=== PATIENT | male | born 1975 | race African-American/Black ===

== ENCOUNTER 2018-04-20 13:26 | Inpatient (IN) | payer OTHER ==
[2018-04-20 14:43] VITALS: BMI 34.1
--- NOTE | 2018-04-20 16:19 | HP ---
CIWA Score - CIWA Score Nausea/Vomitin-Mild Nausea/No Vomiting Muscle Tremors: 3 Anxiety: 3 Agitation: 1-Slight > Activity Paroxysmal Sweats: 1-Minimal Palms Moist Orientation: 0-Oriented Tacttile Disturbances: 2-Mild Itch/Numbness/Burn Auditory Disturbances: 0-None Visual Disturbances: 1-Very Mild Sensitivity Headache: 1-Very Mild CIWA-Ar Total Score: 13 Admission ROS S - HPI Chief Complaint: WITHDRAWAL SYMPTOMS Allergies/Adverse Reactions: Allergies Allergy/AdvReac Type Severity Reaction Status Date / Time No Known Allergies Allergy Verified 04/20/18 15:15 History of Present Illness: 42 Y.O. WITH AN EXTENSIVE HISTORY OF ALCOHOL AND COCAINE DEPENDENCE IS HERE SEEKING DETOX. DOES NOT HAVE A SIGNIFICANT PERIOD OF SOBRIETY. Exam Limitations: No Limitations - Ebola screening Have you traveled outside of the country in the last 21 days: No (N) Have you had contact with anyone from an Ebola affected area: No Have you been sick,other than usual withdrawal symptoms: No Do you have a fever: No - Review of Systems Constitutional: Chills, Diaphoresis EENT: reports: Blurred Vision, Double Vision, Hearing Loss, Nose Congestion Respiratory: reports: No Symptoms reported Cardiac: reports: Lightheadedness GI: reports: No Symptoms Reported : reports: No Symptoms Reported Musculoskeletal: reports: Back Pain, Joint Pain, Neck Pain Integumentary: reports: No Symptoms Reported Neuro: reports: Headache, Numbness, Tingling Endocrine: reports: No Symptoms Reported Hematology: reports: Other (SICKLE CELL TRAIN) Psychiatric: reports: Orientated x3, Anxious, Depressed, other (SCHIZOPHRENIA) Other Systems: Reviewed and Negative Patient History - Patient Medical History Hx Anemia: No (SICKLE CELL TRAIT ) Hx Asthma: No Hx Chronic Obstructive Pulmonary Disease (COPD): No Hx Cancer: No Hx Cardiac Disorders: No Hx Congestive Heart Failure: No Hx Hypertension: Yes Hx Hypercholesterolemia: No Hx Pacemaker: No HX Cerebrovascular Accident: No Hx Seizures: No Hx Dementia: No (TYPE II-NOT TAKING MEDS ) Hx Diabetes: Yes Hx Gastrointestinal Disorders: Yes Hx Liver Disease: No Hx Genitourinary Disorders: No Hx Sexually Transmitted Disorders: No Hx Renal Disease (ESRD): No Hx Human Immunodeficiency Virus (HIV): No Hx Hepatitis C: No Hx Depression: Yes (non-compliant with meds) Hx Suicide Attempt: No Hx Bipolar Disorder: No Hx Schizophrenia: Yes - Patient Surgical History Past Surgical History: Yes Other Surgical History: SKIN EXCISION BIOPSY REQUIRED SURGERY Anesthesia Reaction: Yes - PPD History Previous Implant?: Yes Documented Results: Negative w/o proof PPD to be Administered?: Yes - Reproductive History Patient is a Female of Child Bearing Age (11 -55 yrs old): No - Smoking Cessation Smoking history: Current every day smoker Aproximately how many cigarettes per day: 4 Hx Chewing Tobacco Use: No Initiated information on smoking cessation: Yes 'Breaking Loose' booklet given: 04/20/18 - Substance & Tx. History Hx Alcohol Use: Yes Hx Substance Use: Yes Substance Use Type: Alcohol, Cocaine, Marijuana - Substances Abused Alcohol Route: Oral Frequency: Daily Amount used: Vodka 1 quart, (1) 6pk Beer Age of first use: 9 Date of Last Use: 04/20/18 Cocaine Route: Inhalation Frequency: Daily Amount used: 1 Gm Age of first use: 23 Date of Last Use: 04/20/18 Marijuana/Hashish Route: Inhalation Frequency: Daily Amount used: $100 WEEKLY Age of first use: 16 Date of Last Use: 04/20/18 Family Disease History - Family Disease History Family Disease History: Diabetes: Father, Heart Disease: Grandparent, Father, [place] : Grandparent Admission Physical Exam BHS - Vital Signs Vital Signs: Vital Signs - 24 hr 04/20/18 14:41 Temperature 98.9 F Pulse Rate 89 Respiratory 20 Rate Blood Pressure 170/116 - Physical General Appearance: Yes: Obese, Anxious HEENTM: Yes: Hearing grossly Normal, Normal ENT Inspection, Normocephalic, Normal Voice Respiratory: Yes: Chest Non-Tender, Lungs Clear, Normal Breath Sounds, No Respiratory Distress, No Accessory Muscle Use Neck: Yes: No masses,lesions,Nodules, Trachea in good position Breast: Yes: Breast Exam Deferred Cardiology: Yes: Regular Rhythm, Regular Rate Abdominal: Yes: Normal Bowel Sounds, Non Tender, Flat Back: Yes: Normal Inspection Musculoskeletal: Yes: full range of Motion, Gait Steady Extremities: Yes: Normal Capillary Refill, Normal Inspection Neurological: Yes: sales development representative II-XII NML intact, Fully Oriented, Alert Integumentary: Yes: Normal Color, Dry, Warm Lymphatic: Yes: Within Normal Limits - Diagnostic (1) Alcohol dependence with uncomplicated withdrawal Current Visit: Yes Status: Chronic (2) Cocaine dependence Current Visit: Yes Status: Chronic (3) Marijuana dependence Current Visit: Yes Status: Chronic (4) Hypertension Current Visit: Yes Status: Chronic (5) GERD (gastroesophageal reflux disease) Current Visit: Yes Status: Chronic (6) Diabetes mellitus, type II Current Visit: Yes Status: Chronic Cleared for Admission [facility] - Detox or Rehab [facility] Level of Care: Medically Managed Detox Regimen/Protocol: Librium S Breath Alcohol Content Breath Alcohol Content: 0.033 Urine Drug Screen - Results Drug Screen Negative: No Urine Drug Screen Results: THC-Marijuana, LIOR-Cocaine
[2018-04-20] MEDS ORDERED: MENTHOL/PHENOL 1 EACH UD MM PRN (16:25)
[2018-04-20] MEDS ORDERED: hydrOXYzine PAMOATE 50 MG CAPSULE (FP) PO PRN (16:25)
[2018-04-20] MEDS ORDERED: MAGNESIUM HYDROX 2400MG/30ML ORAL SUSPENSION 30 ML CUP PO PRN (16:25)
[2018-04-20] MEDS ORDERED: MAGNESIUM CITRATE 300 ML BOTTLE PO PRN (16:25)
[2018-04-20] MEDS ORDERED: P-EPHED 60MG/TRIPROLIDI 2.5MG TABLET PO PRN (16:25)
[2018-04-20] MEDS ORDERED: chlordiazePOXIDE HCL 25 MG CAPSULE PO ONE (16:25)
[2018-04-20] MEDS ORDERED: IBUPROFEN 400 MG TABLET (FP) PO PRN (16:25)
[2018-04-20] MEDS ORDERED: LOPERAMIDE HCL 2 MG CAPSULE PO PRN (16:25)
[2018-04-20] MEDS ORDERED: chlordiazePOXIDE HCL 25 MG CAPSULE PO PRN (16:25)
[2018-04-20] MEDS ORDERED: guaiFENesin/D-METHORPHAN HB 10 ML UNIT-DOSE CUPS PO PRN (16:25)
[2018-04-20] MEDS ORDERED: ACETAMINOPHEN 325 MG TABLET (FP) PO PRN (16:25)
[2018-04-20] MEDS: LOSARTAN POTASSIUM 50 MG TABLET (FP) PO SCH (19:10)
[2018-04-20] MEDS ORDERED: MELATONIN 5 MG TABLETS PO PRN (22:00)
[2018-04-20] MEDS ORDERED: ZOLPIDEM TARTRATE 10 MG TABLET (PARK CARE ONLY) PO ONE (22:00)
[2018-04-20] MEDS: chlordiazePOXIDE HCL 25 MG CAPSULE PO SCH (22:16)
[2018-04-20] MEDS: THIAMINE HCL 100 MG TABLET (FP) PO SCH (22:16)
[2018-04-21] MEDS: chlordiazePOXIDE HCL 25 MG CAPSULE PO SCH ×4 (05:36→22:12)
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
[2018-04-21] MEDS: HYDROCHLOROTHIAZIDE 12.5 MG CAPSULE (FP) PO SCH (10:13)
[2018-04-21] MEDS: PRENATAL VITAMINS W/ FOLIC ACID TABLET (FP) PO SCH (10:14)
[2018-04-21] MEDS: LOSARTAN POTASSIUM 50 MG TABLET (FP) PO SCH (10:14)
[2018-04-21] MEDS: RANITIDINE HCL 150 MG TABLET (FP) PO SCH (10:14)
[2018-04-21 11:02] LABS: HEMATOCRIT 42.4 % (35.4-49); HEMOGLOBIN 14.3 GM/dL (11.7-16.9); MCH 26.5 pg (25.7-33.7); MCHC 33.8 g/dl (32.0-35.9); MEAN CELL VOLUME 78.3 fl (80-96); MEAN PLT VOLUME 8.6 fl (7.5-11.1); PLATELET COUNT 182 K/MM3 (134-434); RBC 5.42 M/mm3 (4.00-5.60); RDW 13.8 % (11.9-15.9); WHITE BLOOD COUNT 7.3 K/mm3 (4.0-10.0)
[2018-04-21 11:13] LABS: CHLORIDE 106 mmol/L (98-107); POTASSIUM 4.1 mmol/L (3.5-5.1); SODIUM 142 mmol/L (136-145)
[2018-04-21 11:31] LABS: ALBUMIN 3.5 g/dl (3.4-5.0); ALK PHOS 80 U/L (45-117); ANION GAP 11 MMOL/L (8-16); BILIRUBIN,TOTAL 1.1 mg/dL (0.2-1.0); BLOOD UREA NITROGEN 10 mg/dL (7-18); CALCIUM 8.8 mg/dL (8.5-10.1); CO2 25 mmol/L (21-32); GLUCOSE,RANDOM 97 mg/dL (74-106); SGOT/AST 28 U/L (15-37); SGPT/ALT 29 U/L (12-78); TOT PROT 6.7 g/dl (6.4-8.2)
[2018-04-21 11:34] LABS: URINE APPEARANCE TURBID; URINE BILIRUBIN NEGATIVE (<2.0 mg/dL); URINE COLOR YELLOW; URINE GLUCOSE (UA) NEGATIVE (NEGATIVE); URINE KETONE NEGATIVE (NEGATIVE); URINE LEUK ESTERASE NEGATIVE (NEGATIVE); URINE NITRITE NEGATIVE (NEGATIVE); URINE UROBILINOGEN NEGATIVE mg/dL (0.2-1.0)
[2018-04-21 11:46] LABS: URINE PROTEIN 1+ (NEGATIVE)
[2018-04-21 11:57] LABS: EPI CELLS RARE /HPF (FEW); URINE BACTERIA MANY /hpf (NONE SEEN); URINE MUCUS MODERATE
--- NOTE | 2018-04-21 12:30 | PN ---
[facility] CIWA - CIWA Score Nausea/Vomitin Muscle Tremors: 3 Anxiety: 3 Agitation: 3 Paroxysmal Sweats: 3 Orientation: 0-Oriented Tacttile Disturbances: 1-Very Mild Itch/Numbness Auditory Disturbances: 0-None Visual Disturbances: 0-None Headache: 1-Very Mild CIWA-Ar Total Score: 16 [facility] Progress Note (SOAP) Subjective: Headache, tremor, chills, sweating Objective: 04/21/18 12:27 Last Vital Signs Temp Pulse Resp BP Pulse Ox 97.6 F 100 H 18 138/95 04/21/18 09:22 04/21/18 09:22 04/21/18 09:22 04/21/18 09:22 Laboratory Tests 04/21/18 04/21/18 04/21/18 05:35 08:00 08:00 WBC 7.3 RBC 5.42 Hgb 14.3 Hct 42.4 MCV 78.3 L MCH 26.5 MCHC 33.8 RDW 13.8 Plt Count 182 MPV 8.6 Sodium Potassium Chloride Carbon Dioxide Anion Gap BUN Creatinine Creat Clearance w eGFR POC Glucometer 110 Random Glucose Calcium Total Bilirubin AST ALT Alkaline Phosphatase Total Protein Albumin Urine Color Urine Appearance Urine pH Ur Specific Speculator Urine Protein Urine Glucose (UA) Urine Ketones Urine Blood Urine Nitrite Urine Bilirubin Urine Urobilinogen Ur Leukocyte Esterase Urine WBC (Auto) Urine RBC (Auto) Ur Epithelial Cells Urine Bacteria Urine Mucus HIV 1&2 Antibody Screen Negative HIV P24 Antigen Negative 04/21/18 04/21/18 08:00 09:00 WBC RBC Hgb Hct MCV MCH MCHC RDW Plt Count MPV Sodium 142 Potassium 4.1 Chloride 106 Carbon Dioxide 25 Anion Gap 11 BUN 10 Creatinine 1.0 Creat Clearance w eGFR > 60 POC Glucometer Random Glucose 97 Calcium 8.8 Total Bilirubin 1.1 H AST 28 ALT 29 Alkaline Phosphatase 80 Total Protein 6.7 Albumin 3.5 Urine Color Yellow Urine Appearance Turbid Urine pH 5.0 Ur Specific Speculator 1.029 Urine Protein 1+ H Urine Glucose (UA) Negative Urine Ketones Negative Urine Blood Negative Urine Nitrite Negative Urine Bilirubin Negative Urine Urobilinogen Negative Ur Leukocyte Esterase Negative Urine WBC (Auto) None Urine RBC (Auto) None Ur Epithelial Cells Rare Urine Bacteria Many Urine Mucus Moderate HIV 1&2 Antibody Screen HIV P24 Antigen Labs reviewed: UA shows 1+ protein Assessment: 04/21/18 12:29 Withdrawal symptoms Noted with proteinuria Plan: Continue detox Proteinuria: encouraged PO water intake, repeat UA
[2018-04-21] MEDS ORDERED: cloNIDine HCL 0.1 MG TABLET PO ONE (21:40)
--- NOTE | 2018-04-21 21:55 | PN ---
S Progress Note Note: Patient's blood pressure is B/P 137/104. Patient is asymptomatic Vital Signs Temperature 97.9 F 04/21/18 17:44 Pulse Rate 79 04/21/18 17:44 Respiratory Rate 20 04/21/18 17:44 Blood Pressure 137/104 04/21/18 21:41 O2 Sat by Pulse Oximetry (%) Action: Clonidine 0.1mg tablet oral ordered
[2018-04-21] MEDS: ZOLPIDEM TARTRATE 10 MG TABLET (PARK CARE ONLY) PO PRN (22:12)
[2018-04-21] MEDS: THIAMINE HCL 100 MG TABLET (FP) PO SCH (22:12)
[2018-04-21] MEDS: MAG HYDROX/AL HYDROX/SIMETH 30 ML UNIT-DOSE CUP PO PRN (22:13)
[2018-04-22] MEDS: chlordiazePOXIDE HCL 25 MG CAPSULE PO SCH ×3 (05:04→17:25)
[2018-04-22] MEDS: RANITIDINE HCL 150 MG TABLET (FP) PO SCH (10:38)
[2018-04-22] MEDS: PRENATAL VITAMINS W/ FOLIC ACID TABLET (FP) PO SCH (10:38)
[2018-04-22] MEDS: LOSARTAN POTASSIUM 50 MG TABLET (FP) PO SCH (10:38)
[2018-04-22] MEDS: HYDROCHLOROTHIAZIDE 12.5 MG CAPSULE (FP) PO SCH (10:39)
--- NOTE | 2018-04-22 10:43 | PN ---
S CIWA - CIWA Score Nausea/Vomitin-No Nausea/No Vomiting Muscle Tremors: 4-Moderate,w/Arms Extend Anxiety: 4-Mod. Anxious/Guarded Agitation: 4-Moderately Restless Paroxysmal Sweats: 1-Minimal Palms Moist Orientation: 0-Oriented Tacttile Disturbances: 0-None Auditory Disturbances: 0-None Visual Disturbances: 0-None Headache: 0-None Present CIWA-Ar Total Score: 13 [facility] Progress Note (SOAP) Subjective: ANXIETY,SWEATS, IRRITABILITY. PT REQUESTS DIET CHANGE TO REGULAR DIET FROM [facility]/ [facility]. DOES NOT WANT TO BE ON A DIET. Objective: 04/22/18 10:41 Vital Signs 04/22/18 04/22/18 04/22/18 03:19 06:07 06:30 Temperature 97 F L Pulse Rate 75 Respiratory 18 18 18 Rate Blood Pressure 122/85 Laboratory Tests 04/21/18 04/21/18 04/21/18 05:35 08:00 08:00 WBC 7.3 RBC 5.42 Hgb 14.3 Hct 42.4 MCV 78.3 L MCH 26.5 MCHC 33.8 RDW 13.8 Plt Count 182 MPV 8.6 Sodium Potassium Chloride Carbon Dioxide Anion Gap BUN Creatinine Creat Clearance w eGFR POC Glucometer 110 Random Glucose Calcium Total Bilirubin AST ALT Alkaline Phosphatase Total Protein Albumin Urine Color Urine Appearance Urine pH Ur Specific [place] Urine Protein Urine Glucose (UA) Urine Ketones Urine Blood Urine Nitrite Urine Bilirubin Urine Urobilinogen Ur Leukocyte Esterase Urine WBC (Auto) Urine RBC (Auto) Ur Epithelial Cells Urine Bacteria Urine Mucus RPR Titer HIV 1&2 Antibody Screen Negative HIV P24 Antigen Negative 04/21/18 04/21/18 04/21/18 08:00 08:00 09:00 WBC RBC Hgb Hct MCV MCH MCHC RDW Plt Count MPV Sodium 142 Potassium 4.1 Chloride 106 Carbon Dioxide 25 Anion Gap 11 BUN 10 Creatinine 1.0 Creat Clearance w eGFR > 60 POC Glucometer Random Glucose 97 Calcium 8.8 Total Bilirubin 1.1 H AST 28 ALT 29 Alkaline Phosphatase 80 Total Protein 6.7 Albumin 3.5 Urine Color Yellow Urine Appearance Turbid Urine pH 5.0 Ur Specific [place] 1.029 Urine Protein 1+ H Urine Glucose (UA) Negative Urine Ketones Negative Urine Blood Negative Urine Nitrite Negative Urine Bilirubin Negative Urine Urobilinogen Negative Ur Leukocyte Esterase Negative Urine WBC (Auto) None Urine RBC (Auto) None Ur Epithelial Cells Rare Urine Bacteria Many Urine Mucus Moderate RPR Titer Nonreactive HIV 1&2 Antibody Screen HIV P24 Antigen 04/21/18 04/22/18 16:36 05:04 WBC RBC Hgb Hct MCV MCH MCHC RDW Plt Count MPV Sodium Potassium Chloride Carbon Dioxide Anion Gap BUN Creatinine Creat Clearance w eGFR POC Glucometer 121 150 Random Glucose Calcium Total Bilirubin AST ALT Alkaline Phosphatase Total Protein Albumin Urine Color Urine Appearance Urine pH Ur Specific [place] Urine Protein Urine Glucose (UA) Urine Ketones Urine Blood Urine Nitrite Urine Bilirubin Urine Urobilinogen Ur Leukocyte Esterase Urine WBC (Auto) Urine RBC (Auto) Ur Epithelial Cells Urine Bacteria Urine Mucus RPR Titer HIV 1&2 Antibody Screen HIV P24 Antigen Assessment: 04/22/18 10:41 WITHDRAWAL SX Plan: CONTINUE DETOX EXPLAINED TO PT THE BENEFIT OF DIET MODIFICATION IN PRE-DM AND HTN. PT IS NOT ON MEDS.
--- NOTE | 2018-04-22 11:24 | EKG ---
Test Reason : Blood Pressure : / mmHG Vent. Rate : 069 BPM Atrial Rate : 069 BPM P-R Int : 144 ms QRS Dur : 108 ms QT Int : 410 ms P-R-T Axes : 076 -15 020 degrees QTc Int : 439 ms NORMAL SINUS RHYTHM WITH SINUS ARRHYTHMIA POSSIBLE LEFT ATRIAL ENLARGEMENT INCOMPLETE RIGHT BUNDLE BRANCH BLOCK LEFT VENTRICULAR HYPERTROPHY ABNORMAL ECG NO PREVIOUS ECGS AVAILABLE Confirmed by PAUL OTERO MD ([id number]) on 04/22/2018 11:24:03 AM Referred By: Confirmed By:PAUL OTERO MD
[2018-04-22 16:58] LABS: URINE APPEARANCE CLEAR; URINE BILIRUBIN NEGATIVE (<2.0 mg/dL); URINE COLOR STRAW; URINE GLUCOSE (UA) NEGATIVE (NEGATIVE); URINE KETONE NEGATIVE (NEGATIVE); URINE LEUK ESTERASE NEGATIVE (NEGATIVE); URINE NITRITE NEGATIVE (NEGATIVE); URINE PROTEIN NEGATIVE (NEGATIVE); URINE UROBILINOGEN NEGATIVE mg/dL (0.2-1.0)
[2018-04-22] MEDS: THIAMINE HCL 100 MG TABLET (FP) PO SCH (22:18)
[2018-04-22] MEDS: MAG HYDROX/AL HYDROX/SIMETH 30 ML UNIT-DOSE CUP PO PRN (22:18)
[2018-04-22] MEDS: ZOLPIDEM TARTRATE 10 MG TABLET (PARK CARE ONLY) PO PRN (22:18)
[2018-04-22] MEDS: chlordiazePOXIDE 5 MG CAPSULE PO SCH (22:18)
[2018-04-23] MEDS: chlordiazePOXIDE 5 MG CAPSULE PO SCH ×3 (05:12→17:29)
[2018-04-23] MEDS: HYDROCHLOROTHIAZIDE 12.5 MG CAPSULE (FP) PO SCH (10:08)
[2018-04-23] MEDS: LOSARTAN POTASSIUM 50 MG TABLET (FP) PO SCH (10:09)
[2018-04-23] MEDS: RANITIDINE HCL 150 MG TABLET (FP) PO SCH (10:09)
[2018-04-23] MEDS: PRENATAL VITAMINS W/ FOLIC ACID TABLET (FP) PO SCH (10:09)
--- NOTE | 2018-04-23 11:52 | PN ---
[facility] Progress Note (SOAP) Subjective: DETOX MED TAPER PROCEEDING WELL. ALERT O X 3. NAD. Objective: 04/23/18 11:51 Vital Signs 04/23/18 04/23/18 06:20 10:06 Temperature 97.2 F L 97.0 F L Pulse Rate 67 117 H Respiratory 18 20 Rate Blood Pressure 133/83 133/87 Laboratory Tests 04/21/18 04/21/18 04/21/18 05:35 08:00 08:00 WBC 7.3 RBC 5.42 Hgb 14.3 Hct 42.4 MCV 78.3 L MCH 26.5 MCHC 33.8 RDW 13.8 Plt Count 182 MPV 8.6 Sodium Potassium Chloride Carbon Dioxide Anion Gap BUN Creatinine Creat Clearance w eGFR POC Glucometer 110 Random Glucose Calcium Total Bilirubin AST ALT Alkaline Phosphatase Total Protein Albumin Urine Color Urine Appearance Urine pH Ur Specific [place] Urine Protein Urine Glucose (UA) Urine Ketones Urine Blood Urine Nitrite Urine Bilirubin Urine Urobilinogen Ur Leukocyte Esterase Urine WBC (Auto) Urine RBC (Auto) Ur Epithelial Cells Urine Bacteria Urine Mucus RPR Titer HIV 1&2 Antibody Screen Negative HIV P24 Antigen Negative 04/21/18 04/21/18 04/21/18 08:00 08:00 09:00 WBC RBC Hgb Hct MCV MCH MCHC RDW Plt Count MPV Sodium 142 Potassium 4.1 Chloride 106 Carbon Dioxide 25 Anion Gap 11 BUN 10 Creatinine 1.0 Creat Clearance w eGFR > 60 POC Glucometer Random Glucose 97 Calcium 8.8 Total Bilirubin 1.1 H AST 28 ALT 29 Alkaline Phosphatase 80 Total Protein 6.7 Albumin 3.5 Urine Color Yellow Urine Appearance Turbid Urine pH 5.0 Ur Specific [place] 1.029 Urine Protein 1+ H Urine Glucose (UA) Negative Urine Ketones Negative Urine Blood Negative Urine Nitrite Negative Urine Bilirubin Negative Urine Urobilinogen Negative Ur Leukocyte Esterase Negative Urine WBC (Auto) None Urine RBC (Auto) None Ur Epithelial Cells Rare Urine Bacteria Many Urine Mucus Moderate RPR Titer Nonreactive HIV 1&2 Antibody Screen HIV P24 Antigen 04/21/18 04/22/18 04/22/18 16:36 05:04 14:00 WBC RBC Hgb Hct MCV MCH MCHC RDW Plt Count MPV Sodium Potassium Chloride Carbon Dioxide Anion Gap BUN Creatinine Creat Clearance w eGFR POC Glucometer 121 150 Random Glucose Calcium Total Bilirubin AST ALT Alkaline Phosphatase Total Protein Albumin Urine Color Straw Urine Appearance Clear Urine pH 6.0 Ur Specific [place] 1.009 Urine Protein Negative Urine Glucose (UA) Negative Urine Ketones Negative Urine Blood Negative Urine Nitrite Negative Urine Bilirubin Negative Urine Urobilinogen Negative Ur Leukocyte Esterase Negative Urine WBC (Auto) Urine RBC (Auto) Ur Epithelial Cells Urine Bacteria Urine Mucus RPR Titer HIV 1&2 Antibody Screen HIV P24 Antigen 04/22/18 04/23/18 16:13 05:12 WBC RBC Hgb Hct MCV MCH MCHC RDW Plt Count MPV Sodium Potassium Chloride Carbon Dioxide Anion Gap BUN Creatinine Creat Clearance w eGFR POC Glucometer 114 142 Random Glucose Calcium Total Bilirubin AST ALT Alkaline Phosphatase Total Protein Albumin Urine Color Urine Appearance Urine pH Ur Specific [place] Urine Protein Urine Glucose (UA) Urine Ketones Urine Blood Urine Nitrite Urine Bilirubin Urine Urobilinogen Ur Leukocyte Esterase Urine WBC (Auto) Urine RBC (Auto) Ur Epithelial Cells Urine Bacteria Urine Mucus RPR Titer HIV 1&2 Antibody Screen HIV P24 Antigen Assessment: 04/23/18 11:51 WITHDRAWAL SX Plan: CONTINUE DETOX
[2018-04-23] MEDS: THIAMINE HCL 100 MG TABLET (FP) PO SCH (21:39)
[2018-04-23] MEDS: ZOLPIDEM TARTRATE 10 MG TABLET (PARK CARE ONLY) PO PRN (21:40)
[2018-04-23] MEDS: chlordiazePOXIDE HCL 10 MG CAPSULE PO SCH (22:12)
[2018-04-24] MEDS: chlordiazePOXIDE HCL 10 MG CAPSULE PO SCH (05:12)
--- NOTE | 2018-04-24 09:49 | PN ---
S Progress Note (SOAP) Subjective: DETOX COMPLETED. ALERT O X 3. NAD. PT REPORTS HE HAD A PCP AT [facility] WITH DR. HERNANDEZ BUT MOVED. NOW GOES TO [facility] WHEN NEEDED. Objective: 04/24/18 09:48 Vital Signs 04/24/18 04/24/18 04/24/18 03:50 06:02 06:33 Temperature 98.1 F Pulse Rate 88 Respiratory 18 18 18 Rate Blood Pressure 117/82 Laboratory Tests 04/21/18 04/21/18 04/21/18 05:35 08:00 08:00 WBC 7.3 RBC 5.42 Hgb 14.3 Hct 42.4 MCV 78.3 L MCH 26.5 MCHC 33.8 RDW 13.8 Plt Count 182 MPV 8.6 Sodium Potassium Chloride Carbon Dioxide Anion Gap BUN Creatinine Creat Clearance w eGFR POC Glucometer 110 Random Glucose Calcium Total Bilirubin AST ALT Alkaline Phosphatase Total Protein Albumin Urine Color Urine Appearance Urine pH Ur Specific [place] Urine Protein Urine Glucose (UA) Urine Ketones Urine Blood Urine Nitrite Urine Bilirubin Urine Urobilinogen Ur Leukocyte Esterase Urine WBC (Auto) Urine RBC (Auto) Ur Epithelial Cells Urine Bacteria Urine Mucus RPR Titer HIV 1&2 Antibody Screen Negative HIV P24 Antigen Negative 04/21/18 04/21/18 04/21/18 08:00 08:00 09:00 WBC RBC Hgb Hct MCV MCH MCHC RDW Plt Count MPV Sodium 142 Potassium 4.1 Chloride 106 Carbon Dioxide 25 Anion Gap 11 BUN 10 Creatinine 1.0 Creat Clearance w eGFR > 60 POC Glucometer Random Glucose 97 Calcium 8.8 Total Bilirubin 1.1 H AST 28 ALT 29 Alkaline Phosphatase 80 Total Protein 6.7 Albumin 3.5 Urine Color Yellow Urine Appearance Turbid Urine pH 5.0 Ur Specific [place] 1.029 Urine Protein 1+ H Urine Glucose (UA) Negative Urine Ketones Negative Urine Blood Negative Urine Nitrite Negative Urine Bilirubin Negative Urine Urobilinogen Negative Ur Leukocyte Esterase Negative Urine WBC (Auto) None Urine RBC (Auto) None Ur Epithelial Cells Rare Urine Bacteria Many Urine Mucus Moderate RPR Titer Nonreactive HIV 1&2 Antibody Screen HIV P24 Antigen 04/21/18 04/22/18 04/22/18 16:36 05:04 14:00 WBC RBC Hgb Hct MCV MCH MCHC RDW Plt Count MPV Sodium Potassium Chloride Carbon Dioxide Anion Gap BUN Creatinine Creat Clearance w eGFR POC Glucometer 121 150 Random Glucose Calcium Total Bilirubin AST ALT Alkaline Phosphatase Total Protein Albumin Urine Color Straw Urine Appearance Clear Urine pH 6.0 Ur Specific [place] 1.009 Urine Protein Negative Urine Glucose (UA) Negative Urine Ketones Negative Urine Blood Negative Urine Nitrite Negative Urine Bilirubin Negative Urine Urobilinogen Negative Ur Leukocyte Esterase Negative Urine WBC (Auto) Urine RBC (Auto) Ur Epithelial Cells Urine Bacteria Urine Mucus RPR Titer HIV 1&2 Antibody Screen HIV P24 Antigen 04/22/18 04/23/18 04/23/18 16:13 05:12 16:12 WBC RBC Hgb Hct MCV MCH MCHC RDW Plt Count MPV Sodium Potassium Chloride Carbon Dioxide Anion Gap BUN Creatinine Creat Clearance w eGFR POC Glucometer 114 142 124 Random Glucose Calcium Total Bilirubin AST ALT Alkaline Phosphatase Total Protein Albumin Urine Color Urine Appearance Urine pH Ur Specific [place] Urine Protein Urine Glucose (UA) Urine Ketones Urine Blood Urine Nitrite Urine Bilirubin Urine Urobilinogen Ur Leukocyte Esterase Urine WBC (Auto) Urine RBC (Auto) Ur Epithelial Cells Urine Bacteria Urine Mucus RPR Titer HIV 1&2 Antibody Screen HIV P24 Antigen 04/24/18 05:12 WBC RBC Hgb Hct MCV MCH MCHC RDW Plt Count MPV Sodium Potassium Chloride Carbon Dioxide Anion Gap BUN Creatinine Creat Clearance w eGFR POC Glucometer 118 Random Glucose Calcium Total Bilirubin AST ALT Alkaline Phosphatase Total Protein Albumin Urine Color Urine Appearance Urine pH Ur Specific [place] Urine Protein Urine Glucose (UA) Urine Ketones Urine Blood Urine Nitrite Urine Bilirubin Urine Urobilinogen Ur Leukocyte Esterase Urine WBC (Auto) Urine RBC (Auto) Ur Epithelial Cells Urine Bacteria Urine Mucus RPR Titer HIV 1&2 Antibody Screen HIV P24 Antigen Assessment: 04/24/18 09:49 MEDICALLY STABLE Plan: D/C PT TODAY. PT INSTRUCTED TO FOLLOW UP WITH PCP AT [facility]. COURTESY RX FOR MEDS AND GLUCOMETER MACHINE WITH SUPPLIES SENT TO PHARMACY FOR [facility] ICER.
--- NOTE | 2018-04-24 09:55 | DS ---
[facility] Detox Discharge Summary Admission Date: 04/20/18 Discharge Date: 04/24/18 - History Present History: Alcohol Dependence Additional Comments: DETOX COMPLETED, ALERT O X 3. NAD. PT REPORTS WILL FOLLOW UP WITH PCP AT [facility]. Pertinent Past History: PLEASE SEE DX BELOW. - Physical Exam Results Vital Signs: Vital Signs Temperature 98.1 F 04/24/18 06:02 Pulse Rate 88 04/24/18 06:02 Respiratory Rate 18 04/24/18 06:33 Blood Pressure 117/82 04/24/18 06:02 O2 Sat by Pulse Oximetry (%) Pertinent Admission Physical Exam Findings: WITHDRAWAL SX Laboratory Tests 04/21/18 04/21/18 04/21/18 05:35 08:00 08:00 WBC 7.3 RBC 5.42 Hgb 14.3 Hct 42.4 MCV 78.3 L MCH 26.5 MCHC 33.8 RDW 13.8 Plt Count 182 MPV 8.6 Sodium Potassium Chloride Carbon Dioxide Anion Gap BUN Creatinine Creat Clearance w eGFR POC Glucometer 110 Random Glucose Calcium Total Bilirubin AST ALT Alkaline Phosphatase Total Protein Albumin Urine Color Urine Appearance Urine pH Ur Specific Parmele Urine Protein Urine Glucose (UA) Urine Ketones Urine Blood Urine Nitrite Urine Bilirubin Urine Urobilinogen Ur Leukocyte Esterase Urine WBC (Auto) Urine RBC (Auto) Ur Epithelial Cells Urine Bacteria Urine Mucus RPR Titer HIV 1&2 Antibody Screen Negative HIV P24 Antigen Negative 04/21/18 04/21/18 04/21/18 08:00 08:00 09:00 WBC RBC Hgb Hct MCV MCH MCHC RDW Plt Count MPV Sodium 142 Potassium 4.1 Chloride 106 Carbon Dioxide 25 Anion Gap 11 BUN 10 Creatinine 1.0 Creat Clearance w eGFR > 60 POC Glucometer Random Glucose 97 Calcium 8.8 Total Bilirubin 1.1 H AST 28 ALT 29 Alkaline Phosphatase 80 Total Protein 6.7 Albumin 3.5 Urine Color Yellow Urine Appearance Turbid Urine pH 5.0 Ur Specific [place]me[place] 1.029 Urine Protein 1+ H Urine Glucose (UA) Negative Urine Ketones Negative Urine Blood Negative Urine Nitrite Negative Urine Bilirubin Negative Urine Urobilinogen Negative Ur Leukocyte Esterase Negative Urine WBC (Auto) None Urine RBC (Auto) None Ur Epithelial Cells Rare Urine Bacteria Many Urine Mucus Moderate RPR Titer Nonreactive HIV 1&2 Antibody Screen HIV P24 Antigen 04/21/18 04/22/18 04/22/18 16:36 05:04 14:00 WBC RBC Hgb Hct MCV MCH MCHC RDW Plt Count MPV Sodium Potassium Chloride Carbon Dioxide Anion Gap BUN Creatinine Creat Clearance w eGFR POC Glucometer 121 150 Random Glucose Calcium Total Bilirubin AST ALT Alkaline Phosphatase Total Protein Albumin Urine Color Straw Urine Appearance Clear Urine pH 6.0 Ur Specific Parmele 1.009 Urine Protein Negative Urine Glucose (UA) Negative Urine Ketones Negative Urine Blood Negative Urine Nitrite Negative Urine Bilirubin Negative Urine Urobilinogen Negative Ur Leukocyte Esterase Negative Urine WBC (Auto) Urine RBC (Auto) Ur Epithelial Cells Urine Bacteria Urine Mucus RPR Titer HIV 1&2 Antibody Screen HIV P24 Antigen 04/22/18 04/23/18 04/23/18 16:13 05:12 16:12 WBC RBC Hgb Hct MCV MCH MCHC RDW Plt Count MPV Sodium Potassium Chloride Carbon Dioxide Anion Gap BUN Creatinine Creat Clearance w eGFR POC Glucometer 114 142 124 Random Glucose Calcium Total Bilirubin AST ALT Alkaline Phosphatase Total Protein Albumin Urine Color Urine Appearance Urine pH Ur Specific Parmele Urine Protein Urine Glucose (UA) Urine Ketones Urine Blood Urine Nitrite Urine Bilirubin Urine Urobilinogen Ur Leukocyte Esterase Urine WBC (Auto) Urine RBC (Auto) Ur Epithelial Cells Urine Bacteria Urine Mucus RPR Titer HIV 1&2 Antibody Screen HIV P24 Antigen 04/24/18 05:12 WBC RBC Hgb Hct MCV MCH MCHC RDW Plt Count MPV Sodium Potassium Chloride Carbon Dioxide Anion Gap BUN Creatinine Creat Clearance w eGFR POC Glucometer 118 Random Glucose Calcium Total Bilirubin AST ALT Alkaline Phosphatase Total Protein Albumin Urine Color Urine Appearance Urine pH Ur Specific Parmele Urine Protein Urine Glucose (UA) Urine Ketones Urine Blood Urine Nitrite Urine Bilirubin Urine Urobilinogen Ur Leukocyte Esterase Urine WBC (Auto) Urine RBC (Auto) Ur Epithelial Cells Urine Bacteria Urine Mucus RPR Titer HIV 1&2 Antibody Screen HIV P24 Antigen - Treatment Hospital Course: Detox Protocol Followed, Detoxed Safely, Responded well, Discharged Condition Good, Rehab Referral Accepted Patient has Accepted a Rehab Referral to: [facility] - Medication Discharge Medications: Ambulatory Orders Losartan-Hctz 100-12.5 mg Tab 1 tab PO DAILY 04/20/18 Quetiapine Fumarate [Seroquel -] 600 mg PO HS 04/20/18 Hydrochlorothiazide [Hctz -] 12.5 mg PO DAILY #30 cap 04/24/18 Losartan Potassium [Cozaar -] 100 mg PO DAILY #30 tablet 04/24/18 Metformin HCl [Glucophage] 500 mg PO BID #60 tablet 04/24/18 Ranitidine [Zantac -] 150 mg PO DAILY #30 tablet 04/24/18 - Diagnosis (1) Alcohol dependence with uncomplicated withdrawal Status: Acute (2) GERD (gastroesophageal reflux disease) Status: Chronic Qualifiers: Esophagitis presence: esophagitis presence not specified Qualified Code(s) : K21.9 - Gastro-esophageal reflux disease without esophagitis (3) Nicotine dependence Status: Acute Qualifiers: Nicotine product type: cigarettes Substance use status: in withdrawal Qualified Code(s): F17.213 - Nicotine dependence, cigarettes, with withdrawal (4) Diabetes mellitus, type II Status: Chronic Qualifiers: Diabetes mellitus half-way insulin use: unspecified half-way insulin use status Diabetes mellitus complication status: with unspecified complications Qualified Code(s): E11.8 - Type 2 diabetes mellitus with unspecified complications (5) Hypertension Status: Chronic Qualifiers: Hypertension type: essential hypertension Qualified Code(s): I10 - Essential (primary) hypertension - AMA Did Patient Leave Against Medical Advice: No
[2018-04-24] MEDS: RANITIDINE HCL 150 MG TABLET (FP) PO SCH (10:03)
[2018-04-24] MEDS: HYDROCHLOROTHIAZIDE 12.5 MG CAPSULE (FP) PO SCH (10:03)
[2018-04-24] MEDS: LOSARTAN POTASSIUM 50 MG TABLET (FP) PO SCH (10:03)
[2018-04-24] MEDS: PRENATAL VITAMINS W/ FOLIC ACID TABLET (FP) PO SCH (10:39)
[2018-04-24 10:45] VITALS: BP 131/101; PULSE 113; TEMP 98.6
== END 2018-04-24 10:46 | disposition home or self-care (01) | DRG 774 ==
LOC: YASAS 13:26 → Y3N 17:36
PROC: HZ2ZZZZ Detoxification Services for Substance Abuse Treatment (ICD-10-PCS; principal; 2018-04-20)
DX: F10.230 Alcohol dependence with withdrawal, uncomplicated (principal); F14.20 Cocaine dependence, uncomplicated; F12.20 Cannabis dependence, uncomplicated; F17.213 Nicotine dependence, cigarettes, with withdrawal; F19.24 Other psychoactive substance dependence with psychoactive substance-induced mood disorder; F19.282 Other psychoactive substance dependence with psychoactive substance-induced sleep disorder; F25.9 Schizoaffective disorder, unspecified; F32.9 Major depressive disorder, single episode, unspecified; Z91.14 Patient's other noncompliance with medication regimen; I10 Essential (primary) hypertension; E78.00 Pure hypercholesterolemia, unspecified; E11.9 Type 2 diabetes mellitus without complications; R80.9 Proteinuria, unspecified; D57.3 Sickle-cell trait
CPT/HCPCS: 36415; 80053; 81003; 81015; 82962; 85027; 86593; 87389; 93005; 93010; J0735

== ENCOUNTER 2019-06-06 11:22 | Inpatient (IN) | payer OTHER ==
[2019-06-06 14:19] VITALS: BMI 31.1
--- NOTE | 2019-06-06 15:16 | HP ---
COWS - Scale Resting Pulse: 0= [place] 80 or Below Sweatin=Flushed/Facial Moisture Restless Observation: 1= Difficult to Sit Still Pupil Size: 0= Normal to Room Light Bone or Joint Aches: 1= Mild Discomfort Runny Nose/ Eye Tearin= Runny Nose/Eyes GI Upset > 30mins: 3= Vomiting/Diarrhea Tremor Observation: 2= Slight Tremor Visible Yawning Observation: 0= None Anxiety or Irritability: 2=Irritable/Anxious Goose Flesh Skin: 0=Smooth Skin COWS Score: 13 CIWA Score Nausea/Vomitin-Cont. Nausea/Vomiting Muscle Tremors: 4-Moderate,w/Arms Extend Anxiety: 1-Mildly Anxious Agitation: 4-Moderately Restless Paroxysmal Sweats: 2 Orientation: 0-Oriented Tacttile Disturbances: 0-None Auditory Disturbances: 0-None Visual Disturbances: 0-None Headache: 3-Moderate CIWA-Ar Total Score: 21 - Admission Criteria OASAS Guidelines: Admission for Medically Managed Detox: Requires at least one of the followin. CIWA greater than 12 2. Seizures within the past 24 hours 3. Delirium tremens within the past 24 hours 4. Hallucinations within the past 24 hours 5. Acute intervention needed for co occurring medical disorder 6. Acute intervention needed for co occurring psychiatric disorder 7. Severe withdrawal that cannot be handled at a lower level of care (continued vomiting, continued diarrhea, abnormal vital signs) requiring intravenous medication and/or fluids 8. Admitting History and Physical - Past Medical History Cardiovascular: Yes: HTN Psych: Yes: Bipolar Endocrine: Yes: Diabetes Mellitus - Past Surgical History Additional Past Surgical History: LLE I&D - Smoking History Smoking history: Current every day smoker Have you smoked in the past 12 months: Yes Aproximately how many cigarettes per day: 10 - Alcohol/Substance Use Hx Alcohol Use: Yes History of Substance Use: reports: Cocaine, Heroin, Marijuana, Prescription Admission ROS [facility] Allergies/Adverse Reactions: Allergies Allergy/AdvReac Type Severity Reaction Status Date / Time No Known Allergies Allergy Verified 06/06/19 14:10 History of Present Illness: 43 y.o. M HTN, DM2, bipolar disorder (not on psych meds) presenting for detox from heroin and alcohol. Pt had completed detox here in the past. EtOH: Drinks 1 pint vodka and 1 6 pack daily. Last drink today around 5am, 1/2 liter vodka. Has been drinking since age 11 or 12. Has passed out from drinking. Never had seizures in the past from not drinking. Heroin: Uses 1 bag every other day. Sniffs, never used IV. HaD been using heroin 6-7 years. Benzos: takes ambien, prescribed by psychiatrist at [facility]/ [facility] as per patient Cocaine: hasnt used in 1 week Marijuana: daily use, 3 blunts every day Cigarettes: smokes 1/2 pack daily. Since age 19. PSH: LLE I&D "d/t staph infection" Social hx: homeless x 4-5 months. Not currently working. Has good support system. All: pollens, seasonal Meds: ambien, seroquel Exam Limitations: Intoxication - Ebola screening Have you traveled outside of the country in the last 21 days: No (N) Have you had contact with anyone from an Ebola affected area: No Do you have a fever: No - Review of Systems Constitutional: Chills, Diaphoresis, Weakness Respiratory: reports: No Symptoms reported Cardiac: reports: No Symptoms Reported GI: reports: Constipated, Nausea, Vomiting, Abdominal cramping : reports: No Symptoms Reported Musculoskeletal: reports: Back Pain Integumentary: reports: No Symptoms Reported Neuro: reports: Headache, Dizziness Endocrine: reports: No Symptoms Reported Hematology: reports: No Symptoms Reported Psychiatric: reports: other ("I feel messed up") Patient History - Patient Medical History Hx Anemia: No (SICKLE CELL TRAIT ) Hx Asthma: No Hx Chronic Obstructive Pulmonary Disease (COPD): No Hx Cancer: No Hx Cardiac Disorders: No Hx Congestive Heart Failure: No Hx Hypertension: Yes Hx Hypercholesterolemia: No Hx Pacemaker: No HX Cerebrovascular Accident: No Hx Seizures: No Hx Dementia: No (TYPE II-NOT TAKING MEDS ) Hx Diabetes: Yes Hx Gastrointestinal Disorders: Yes Hx Liver Disease: No Hx Genitourinary Disorders: No Hx Sexually Transmitted Disorders: No Hx Renal Disease (ESRD): No Hx Human Immunodeficiency Virus (HIV): No Hx Hepatitis C: No Hx Depression: Yes (non-compliant with meds) Hx Suicide Attempt: No Hx Bipolar Disorder: No Hx Schizophrenia: Yes - Patient Surgical History Past Surgical History: Yes Other Surgical History: SKIN EXCISION BIOPSY REQUIRED SURGERY Anesthesia Reaction: Yes - PPD History Date: 04/22/18 - Smoking Cessation Smoking history: Current every day smoker Have you smoked in the past 12 months: Yes Aproximately how many cigarettes per day: 10 Hx Chewing Tobacco Use: No Initiated information on smoking cessation: Yes 'Breaking Loose' booklet given: 06/06/19 - Substances abused Alcohol Substance route: Oral Frequency: Daily Amount used: 1 pint of vodka, 6 pack beer Age of first use: 11 Date of last use: 06/06/19 Heroin Substance route: Inhalation Frequency: 3-6 times per week Amount used: $40 Age of first use: 28 Date of last use: 06/04/19 Cocaine Substance route: Inhalation Frequency: 1-2 times per week Amount used: 1-2gm Age of first use: 27 Date of last use: 05/23/19 Admission Physical Exam [facility] - Vital Signs Vital Signs: Vital Signs - 24 hr 06/06/19 14:05 Temperature 96.9 F L Pulse Rate 63 Respiratory 16 Rate Blood Pressure 172/98 H - Physical General Appearance: Yes: Disheveled, Mild Distress, Intoxicated, Sweating, Anxious HEENTM: Yes: Hearing grossly Normal, Normocephalic, Normal Voice, GOGO, Pharynx Normal Respiratory: Yes: Lungs Clear, Normal Breath Sounds Neck: Yes: Within Normal Limits Cardiology: Yes: Within Normal Limits, Regular Rhythm, Regular Rate, S1, S2 Abdominal: Yes: Normal Bowel Sounds, Non Tender, Soft Back: Yes: Within Normal Limits Musculoskeletal: Yes: Within Normal Limits Extremities: Yes: Within Normal Limits, Normal Inspection Neurological: Yes: emergency services professional II-XII NML intact, Fully Oriented, Alert Integumentary: Yes: Within Normal Limits Lymphatic: Yes: Within Normal Limits - Diagnostic (1) Alcohol dependence with uncomplicated withdrawal Current Visit: No Status: Acute (2) Cannabis dependence Current Visit: No Status: Chronic (3) Diabetes mellitus, type II Current Visit: No Status: Chronic Qualifiers: Diabetes mellitus snf insulin use: unspecified termite renewal inspector insulin use status Diabetes mellitus complication status: with unspecified complications (4) Hypertension Current Visit: No Status: Chronic Qualifiers: Hypertension type: essential hypertension Qualified Code(s): I10 - Essential (primary) hypertension (5) Marijuana dependence Current Visit: No Status: Chronic Cleared for Admission [facility] - Detox or Rehab [facility] Level of Care: Medically Supervised Detox Regimen/Protocol: Librium Breathalyzer - Breathalyzer Breathalyzer: 0 Urine Drug Screen - Test Device Lot number: [id number] Expiration date: 01/10/21 - Control Is test valid?: Yes - Results Drug screen NEGATIVE: No Urine drug screen results: THC-Marijuana, MOP-Opiates, BZO-Benzodiazepines Inpatient Rehab Admission - Rehab Decision to Admit Inpatient rehab admission?: No
[2019-06-06] MEDS ORDERED: NICOTINE POLACRILEX 2 MG GUM BUC PRN (15:29)
[2019-06-06] MEDS ORDERED: ACETAMINOPHEN 325 MG TABLET (FP) PO PRN ×2 (15:29)
[2019-06-06] MEDS ORDERED: BISMUTH SUBSALICYLATE 262 MG/15 ML BTL PO PRN (15:29)
[2019-06-06] MEDS ORDERED: MAG HYDROX/AL HYDROX/SIMETH 30 ML UNIT-DOSE CUP PO PRN (15:29)
[2019-06-06] MEDS ORDERED: IBUPROFEN 400 MG TABLET (FP) PO PRN (15:29)
[2019-06-06] MEDS ORDERED: chlordiazePOXIDE HCL 25 MG CAPSULE PO PRN (15:29)
[2019-06-06] MEDS ORDERED: MAGNESIUM CITRATE 300 ML BOTTLE PO PRN (15:29)
[2019-06-06] MEDS ORDERED: MAGNESIUM HYDROX 2400MG/30ML ORAL SUSPENSION 30 ML CUP PO PRN (15:29)
[2019-06-06] MEDS: LORATADINE 10 MG TABLET PO SCH (18:16)
[2019-06-06] MEDS: chlordiazePOXIDE HCL 25 MG CAPSULE PO SCH ×2 (18:16→22:05)
[2019-06-06] MEDS: ALBUTEROL SO4 8 GM HFA INHALER IH SCH (21:22)
[2019-06-06] MEDS: THIAMINE HCL 100 MG TABLET (FP) PO SCH (22:05)
[2019-06-06] MEDS: MELATONIN 5 MG TABLETS PO PRN (22:05)
[2019-06-06] MEDS: MENTHOL/PHENOL 1 EACH UD MM PRN (22:08)
[2019-06-07] MEDS: chlordiazePOXIDE HCL 25 MG CAPSULE PO SCH ×4 (05:36→22:21)
[2019-06-07] MEDS: metFORMIN HCL 500 MG TABLET (FP) PO SCH ×2 (06:01→16:50)
[2019-06-07] MEDS: LORATADINE 10 MG TABLET PO SCH (10:25)
[2019-06-07] MEDS: PRENATAL VITAMINS W/ FOLIC ACID TABLET (FP) PO SCH (10:25)
[2019-06-07] MEDS: ALBUTEROL SO4 8 GM HFA INHALER IH SCH ×4 (10:25→20:21)
[2019-06-07] MEDS: LOSARTAN POTASSIUM 25 MG TABLET PO SCH (10:26)
[2019-06-07 12:30] LABS: HEMATOCRIT 40.9 % (35.4-49); HEMOGLOBIN 13.9 GM/dL (11.7-16.9); MCH 27.4 pg (25.7-33.7); MCHC 34.1 g/dl (32.0-35.9); MEAN CELL VOLUME 80.3 fl (80-96); MEAN PLT VOLUME 8.5 fl (7.5-11.1); PLATELET COUNT 221 K/MM3 (134-434); RBC 5.09 M/mm3 (4.00-5.60); RDW 13.2 % (11.9-15.9); WHITE BLOOD COUNT 10.1 K/mm3 (4.0-10.0)
[2019-06-07 12:33] LABS: ALBUMIN 3.6 g/dl (3.4-5.0); BILIRUBIN,TOTAL 0.6 mg/dL (0.2-1); BLOOD UREA NITROGEN 16.9 mg/dL (7-18); CALCIUM 8.7 mg/dL (8.5-10.1); CREATININE 1.1 mg/dL (0.55-1.3); POTASSIUM 4.2 mmol/L (3.5-5.1)
--- NOTE | 2019-06-07 15:25 | CONSULT ---
[facility] Psychiatric Consult - Data Date of interview: 06/07/19 Admission source: [facility] Identifying data: Readmission to [facility] for this 43 y/o AA male self- referred for detoxification (LORENA issues : cannabis, cocaine, alcohol, nicotine, heroin). Interviewed at [address] [place] [address]. Patient is single, a father of six, homeless, unemployed and deprived of financial assistance. Substance Abuse History: Discussed with patient Details in current [facility] report as follows : Smoking history: Current every day smoker. Have you smoked in the past 12 months: Yes. Aproximately how many cigarettes per day: 10. Hx Chewing Tobacco Use: No. Initiated information on smoking cessation: Yes. 'Breaking Loose' booklet given: 06/06/19. - Substances abused. Alcohol. Substance route: Oral. Frequency: Daily. Amount used: 1 pint of vodka, 6 pack beer. Age of first use: 11. Date of last use: 06/06/19. Heroin. Substance route : Inhalation. Frequency: 3-6 times per week. Amount used: $40. Age of first use: 28. Date of last use: 06/04/19. Cocaine. Substance route: Inhalation. Frequency: 1-2 times per week. Amount used: 1-2gm. Age of first use: 27. Date of last use: 05/23/19 Medical History: Medical profile is significant for sickle cell anemia, hypertension and diabetes mellitus. Psychiatric History: Patient is a marginally cooperative and evasive historian. Argumentative. " Everything is in my records. I am tired of repeating myself. Why don't you check the computer ? I don't remember the names of my medications. " Mr Gibson states that he got discharged from the psychiatric inpatient service at [facility] about a week ago. Endorses the diagnosis of Bipolar Disorder. Patient declares that he last took psychotropic medications 3- 4 years ago. Has dropped out of OPD care at [facility] mental health clinic since 2014. Admits to one suicide attempt (overdose with drugs, two weeks ago). Physical/Sexual Abuse/Trauma History: Patient denies. Additional Comment: Urine drug screen results: THC-Marijuana, MOP-Opiates, BZO- Benzodiazepines. Noted. Mental Status Exam - Mental Status Exam Alert and Oriented to: Time, Place, Person Cognitive Function: Good Patient Appearance: Unkempt, Disheveled Mood: Hostile, Withdrawn, Irritable Affect: Mood Congruent, Constricted Patient Behavior: Fatigued, Cooperative Speech Pattern: Clear Voice Loudness: Normal Thought Process: Goal Oriented Thought Disorder: Not Present Hallucinations: Denies Suicidal Ideation: Denies Homicidal Ideation: Denies Insight/Judgement: Poor Sleep: Poorly, Difficulty falling asleep Appetite: Good Muscle strength/Tone: Normal Gait/Station: Normal Psychiatric Findings - Problem List ([place] 1, 2,3) (1) Alcohol dependence with uncomplicated withdrawal Current Visit: Yes Status: Acute (2) Opioid use disorder Current Visit: Yes Status: Chronic (3) Nicotine dependence Current Visit: Yes Status: Chronic Qualifiers: Nicotine product type: cigarettes Substance use status: in withdrawal Qualified Code(s): F17.213 - Nicotine dependence, cigarettes, with withdrawal (4) Cannabis dependence Current Visit: Yes Status: Chronic (5) Cocaine dependence Current Visit: Yes Status: Chronic (6) Substance induced mood disorder Current Visit: Yes Status: Chronic (7) Schizoaffective disorder Current Visit: Yes Status: Chronic (8) Insomnia Current Visit: Yes Status: Chronic (9) Non-compliance Current Visit: Yes Status: Chronic - Initial Treatment Plan Initial Treatment Plan: Psychoeducation. Sleep hygiene. Detoxification. Medications on hold until verification of discharge papers from [facility]. Patient is made aware. Nursing staff advised to allow patient to retrieve documents from [facility] lockers. Support. AA/NA meetings. Observation. No medications found.
[2019-06-07] MEDS: LIDOCAINE 5% TOPICAL PATCH TP SCH (15:35)
--- NOTE | 2019-06-07 16:13 | PN ---
S CIWA - CIWA Score Nausea/Vomitin-No Nausea/No Vomiting Muscle Tremors: 3 Anxiety: 2 Agitation: 1-Slight > Activity Paroxysmal Sweats: No Perspiration Orientation: 0-Oriented Tacttile Disturbances: 1-Very Mild Itch/Numbness Auditory Disturbances: 0-None Visual Disturbances: 0-None Headache: 3-Moderate CIWA-Ar Total Score: 10 BHS COWS - Scale Resting Pulse: 0= [place] 80 or Below Sweatin= Chills/Flushing Restless Observation: 1= Difficult to Sit Still Pupil Size: 0= Normal to Room Light Bone or Joint Aches: 2= Severe Diffuse Aches Runny Nose/ Eye Tearin= None GI Upset > 30mins: 0= None Tremor Observation of Outstretched Hands: 0= None Yawning Observation: 1= 1-2x During Session Anxiety or Irritability: 2=Irritable/Anxious Goose Flesh Skin: 3=Piloerection COWS Score: 10 BHS Progress Note (SOAP) Subjective: Interrupted Sleep, H/A, Body Aches. Objective: PATIENT A & O X 3, OBSERVED AMBULATING ON DETOX UNIT UNASSISTED. IN NO ACUTE DISTRESS. 06/07/19 16:12 Vital Signs Temperature 97.3 F L 06/07/19 09:33 Pulse Rate 79 06/07/19 09:33 Respiratory Rate 18 06/07/19 09:33 Blood Pressure 126/87 06/07/19 09:33 O2 Sat by Pulse Oximetry (%) Laboratory Tests 06/07/19 06/07/19 06/07/19 05:35 07:55 07:55 WBC 10.1 H RBC 5.09 Hgb 13.9 Hct 40.9 MCV 80.3 MCH 27.4 MCHC 34.1 RDW 13.2 Plt Count 221 D MPV 8.5 Sodium 138 Potassium 4.2 Chloride 101 Carbon Dioxide 30 Anion Gap 7 L BUN 16.9 Creatinine 1.1 Est GFR (CKD-EPI)AfAm 93.47 Est GFR (CKD-EPI)NonAf 80.64 POC Glucometer 104 Random Glucose 93 Calcium 8.7 Total Bilirubin 0.6 AST 26 ALT 41 Alkaline Phosphatase 96 Total Protein 7.0 Albumin 3.6 RPR Titer 06/07/19 07:55 WBC RBC Hgb Hct MCV MCH MCHC RDW Plt Count MPV Sodium Potassium Chloride Carbon Dioxide Anion Gap BUN Creatinine Est GFR (CKD-EPI)AfAm Est GFR (CKD-EPI)NonAf POC Glucometer Random Glucose Calcium Total Bilirubin AST ALT Alkaline Phosphatase Total Protein Albumin RPR Titer Nonreactive LABS NOTED. Assessment: 06/07/19 16:12 WITHDRAWAL SYMPTOMS. Plan: CONTINUE DETOX. LIDODERM PATCH FOR LOWER BACK PAIN.
[2019-06-07] MEDS: LIDOCAINE PATCH REMOVAL MC SCH (22:21)
[2019-06-07] MEDS: THIAMINE HCL 100 MG TABLET (FP) PO SCH (22:21)
[2019-06-07] MEDS: MELATONIN 5 MG TABLETS PO PRN (22:22)
[2019-06-07] MEDS: hydrOXYzine PAMOATE 25 MG CAPSULE (FP) PO PRN (22:22)
[2019-06-07] MEDS: MENTHOL/PHENOL 1 EACH UD MM PRN (22:23)
[2019-06-08] MEDS: chlordiazePOXIDE HCL 25 MG CAPSULE PO SCH ×4 (06:07→22:11)
[2019-06-08] MEDS: metFORMIN HCL 500 MG TABLET (FP) PO SCH ×2 (06:44→17:06)
[2019-06-08] MEDS: ALBUTEROL SO4 8 GM HFA INHALER IH SCH ×2 (07:52→12:54)
[2019-06-08] MEDS: LOSARTAN POTASSIUM 25 MG TABLET PO SCH (10:24)
[2019-06-08] MEDS: PRENATAL VITAMINS W/ FOLIC ACID TABLET (FP) PO SCH (10:24)
[2019-06-08] MEDS: LORATADINE 10 MG TABLET PO SCH (10:24)
[2019-06-08] MEDS: LIDOCAINE 5% TOPICAL PATCH TP SCH (10:25)
--- NOTE | 2019-06-08 12:15 | PN ---
S CIWA - CIWA Score Nausea/Vomitin-Mild Nausea/No Vomiting Muscle Tremors: 2 Anxiety: 2 Agitation: 1-Slight > Activity Paroxysmal Sweats: 1-Minimal Palms Moist Orientation: 0-Oriented Tacttile Disturbances: 0-None Auditory Disturbances: 0-None Visual Disturbances: 0-None Headache: 0-None Present CIWA-Ar Total Score: 7 BHS Progress Note (SOAP) Subjective: patient has positive opioid urine tox upon admission patient refuses methadone detox regimen that he dose not want to take methadone nor any form of synthetic opioid patient is alert oriented x 3 speech coherently clearly ambulating on hallway eating breakfast sitting on the edge of the bed no trouble chewing nor swallowing the food tolerate food and fluid well Objective: 06/08/19 13:00 Vital Signs Temperature 98 F 06/08/19 12:51 Pulse Rate 82 06/08/19 12:51 Respiratory Rate 18 06/08/19 12:51 Blood Pressure 129/82 06/08/19 12:51 O2 Sat by Pulse Oximetry (%) Laboratory Last Values WBC 10.1 K/mm3 (4.0-10.0) H 06/07/19 07:55 RBC 5.09 M/mm3 (4.00-5.60) 06/07/19 07:55 Hgb 13.9 GM/dL (11.7-16.9) 06/07/19 07:55 Hct 40.9 % (35.4-49) 06/07/19 07:55 MCV 80.3 fl (80-96) 06/07/19 07:55 MCH 27.4 pg (25.7-33.7) 06/07/19 07:55 MCHC 34.1 g/dl (32.0-35.9) 06/07/19 07:55 RDW 13.2 % (11.9-15.9) 06/07/19 07:55 Plt Count 221 K/MM3 (134-434) D 06/07/19 07:55 MPV 8.5 fl (7.5-11.1) 06/07/19 07:55 Sodium 138 mmol/L (136-145) 06/07/19 07:55 Potassium 4.2 mmol/L (3.5-5.1) 06/07/19 07:55 Chloride 101 mmol/L (98-107) 06/07/19 07:55 Carbon Dioxide 30 mmol/L (21-32) 06/07/19 07:55 Anion Gap 7 MMOL/L (8-16) L 06/07/19 07:55 BUN 16.9 mg/dL (7-18) 06/07/19 07:55 Creatinine 1.1 mg/dL (0.55-1.3) 06/07/19 07:55 Est GFR (CKD-EPI)AfAm 93.47 06/07/19 07:55 Est GFR (CKD-EPI)NonAf 80.64 06/07/19 07:55 POC Glucometer 129 UNITS (80-120) 06/08/19 06:06 Random Glucose 93 mg/dL (74-106) 06/07/19 07:55 Calcium 8.7 mg/dL (8.5-10.1) 06/07/19 07:55 Total Bilirubin 0.6 mg/dL (0.2-1) 06/07/19 07:55 AST 26 U/L (15-37) 06/07/19 07:55 ALT 41 U/L (13-61) 06/07/19 07:55 Alkaline Phosphatase 96 U/L (45-117) 06/07/19 07:55 Total Protein 7.0 g/dl (6.4-8.2) 06/07/19 07:55 Albumin 3.6 g/dl (3.4-5.0) 06/07/19 07:55 RPR Titer Nonreactive (NONREACTIVE) 06/07/19 07:55 lab noted Assessment: 06/08/19 13:01 alcohol withdrawal sx Plan: continue librium detox regimen
[2019-06-08] MEDS ORDERED: ALBUTEROL SO4 8 GM HFA INHALER IH PRN (14:33)
[2019-06-08] MEDS: METHOCARBAMOL 500 MG TABLET PO PRN (21:44)
[2019-06-08] MEDS: hydrOXYzine PAMOATE 25 MG CAPSULE (FP) PO PRN (21:44)
[2019-06-08] MEDS: THIAMINE HCL 100 MG TABLET (FP) PO SCH (21:47)
[2019-06-08] MEDS: LIDOCAINE PATCH REMOVAL MC SCH (21:47)
[2019-06-08] MEDS: QUEtiapine FUMARATE 100 MG TABLET (FP) PO SCH (21:47)
[2019-06-08] MEDS: MELATONIN 5 MG TABLETS PO PRN (21:48)
[2019-06-09] MEDS ORDERED: chlordiazePOXIDE HCL 10 MG CAPSULE PO PRN
[2019-06-09] MEDS: chlordiazePOXIDE HCL 10 MG CAPSULE PO SCH ×4 (07:25→22:04)
[2019-06-09] MEDS: metFORMIN HCL 500 MG TABLET (FP) PO SCH ×2 (07:25→17:37)
[2019-06-09] MEDS: LIDOCAINE 5% TOPICAL PATCH TP SCH (11:36)
[2019-06-09] MEDS: LOSARTAN POTASSIUM 25 MG TABLET PO SCH (11:37)
[2019-06-09] MEDS: LORATADINE 10 MG TABLET PO SCH (11:37)
[2019-06-09] MEDS: PRENATAL VITAMINS W/ FOLIC ACID TABLET (FP) PO SCH (11:37)
[2019-06-09] MEDS: METHOCARBAMOL 500 MG TABLET PO PRN (11:39)
--- NOTE | 2019-06-09 13:39 | PN ---
S CIWA - CIWA Score Nausea/Vomitin-No Nausea/No Vomiting Muscle Tremors: 2 Anxiety: 2 Agitation: 1-Slight > Activity Paroxysmal Sweats: No Perspiration Orientation: 0-Oriented Tacttile Disturbances: 0-None Auditory Disturbances: 0-None Visual Disturbances: 0-None Headache: 0-None Present CIWA-Ar Total Score: 5 S Progress Note (SOAP) Subjective: 43 years old male admitted on 06/07/19 for alcohol withdrawal sx management treated with librium detox regimen requests to be seen by a psychiatrist for depression psychiatric referral Objective: 06/09/19 13:41 Vital Signs Temperature 98 F 06/09/19 13:35 Pulse Rate 67 06/09/19 13:35 Respiratory Rate 20 06/09/19 13:35 Blood Pressure 123/78 06/09/19 13:35 O2 Sat by Pulse Oximetry (%) Laboratory Last Values WBC 10.1 K/mm3 (4.0-10.0) H 06/07/19 07:55 RBC 5.09 M/mm3 (4.00-5.60) 06/07/19 07:55 Hgb 13.9 GM/dL (11.7-16.9) 06/07/19 07:55 Hct 40.9 % (35.4-49) 06/07/19 07:55 MCV 80.3 fl (80-96) 06/07/19 07:55 MCH 27.4 pg (25.7-33.7) 06/07/19 07:55 MCHC 34.1 g/dl (32.0-35.9) 06/07/19 07:55 RDW 13.2 % (11.9-15.9) 06/07/19 07:55 Plt Count 221 K/MM3 (134-434) D 06/07/19 07:55 MPV 8.5 fl (7.5-11.1) 06/07/19 07:55 Sodium 138 mmol/L (136-145) 06/07/19 07:55 Potassium 4.2 mmol/L (3.5-5.1) 06/07/19 07:55 Chloride 101 mmol/L (98-107) 06/07/19 07:55 Carbon Dioxide 30 mmol/L (21-32) 06/07/19 07:55 Anion Gap 7 MMOL/L (8-16) L 06/07/19 07:55 BUN 16.9 mg/dL (7-18) 06/07/19 07:55 Creatinine 1.1 mg/dL (0.55-1.3) 06/07/19 07:55 Est GFR (CKD-EPI)AfAm 93.47 06/07/19 07:55 Est GFR (CKD-EPI)NonAf 80.64 06/07/19 07:55 POC Glucometer 162 UNITS (80-120) 06/08/19 20:49 Random Glucose 93 mg/dL (74-106) 06/07/19 07:55 Calcium 8.7 mg/dL (8.5-10.1) 06/07/19 07:55 Total Bilirubin 0.6 mg/dL (0.2-1) 06/07/19 07:55 AST 26 U/L (15-37) 06/07/19 07:55 ALT 41 U/L (13-61) 06/07/19 07:55 Alkaline Phosphatase 96 U/L (45-117) 06/07/19 07:55 Total Protein 7.0 g/dl (6.4-8.2) 06/07/19 07:55 Albumin 3.6 g/dl (3.4-5.0) 06/07/19 07:55 RPR Titer Nonreactive (NONREACTIVE) 06/07/19 07:55 lab noted Assessment: 06/09/19 13:42 alcohol withdrawal sx Plan: continue librium detox regimen
[2019-06-09] MEDS: QUEtiapine FUMARATE 100 MG TABLET (FP) PO SCH (22:04)
[2019-06-09] MEDS: THIAMINE HCL 100 MG TABLET (FP) PO SCH (22:05)
[2019-06-09] MEDS: MELATONIN 5 MG TABLETS PO PRN (22:05)
[2019-06-09] MEDS: LIDOCAINE PATCH REMOVAL MC SCH (22:07)
[2019-06-10] MEDS ORDERED: chlordiazePOXIDE HCL 10 MG CAPSULE PO SCH (05:00)
[2019-06-10] MEDS: metFORMIN HCL 500 MG TABLET (FP) PO SCH (06:12)
[2019-06-10] MEDS: LOSARTAN POTASSIUM 25 MG TABLET PO SCH (10:17)
[2019-06-10] MEDS: PRENATAL VITAMINS W/ FOLIC ACID TABLET (FP) PO SCH (10:17)
[2019-06-10] MEDS: LORATADINE 10 MG TABLET PO SCH (10:17)
[2019-06-10] MEDS: LIDOCAINE 5% TOPICAL PATCH TP SCH (10:17)
[2019-06-10 13:39] VITALS: BP 130/88; PULSE 88; TEMP 98
--- NOTE | 2019-06-10 13:46 | PN ---
[facility] CIWA - CIWA Score Nausea/Vomitin-Mild Nausea/No Vomiting Muscle Tremors: 1-None Visible, but [place] Anxiety: 2 Agitation: 2 Paroxysmal Sweats: No Perspiration Orientation: 0-Oriented Tacttile Disturbances: 0-None Auditory Disturbances: 0-None Visual Disturbances: 0-None Headache: 1-Very Mild CIWA-Ar Total Score: 7 S Progress Note (SOAP) Subjective: alert,irritable,anxious,interrupted sleep,threatening the staff,ssen by dr Bhat Objective: 06/10/19 13:44 Vital Signs Temperature 98.0 F 06/10/19 13:38 Pulse Rate 88 06/10/19 13:38 Respiratory Rate 18 06/10/19 13:38 Blood Pressure 130/88 06/10/19 13:38 O2 Sat by Pulse Oximetry (%) Laboratory Last Values WBC 10.1 K/mm3 (4.0-10.0) H 06/07/19 07:55 RBC 5.09 M/mm3 (4.00-5.60) 06/07/19 07:55 Hgb 13.9 GM/dL (11.7-16.9) 06/07/19 07:55 Hct 40.9 % (35.4-49) 06/07/19 07:55 MCV 80.3 fl (80-96) 06/07/19 07:55 MCH 27.4 pg (25.7-33.7) 06/07/19 07:55 MCHC 34.1 g/dl (32.0-35.9) 06/07/19 07:55 RDW 13.2 % (11.9-15.9) 06/07/19 07:55 Plt Count 221 K/MM3 (134-434) D 06/07/19 07:55 MPV 8.5 fl (7.5-11.1) 06/07/19 07:55 Sodium 138 mmol/L (136-145) 06/07/19 07:55 Potassium 4.2 mmol/L (3.5-5.1) 06/07/19 07:55 Chloride 101 mmol/L (98-107) 06/07/19 07:55 Carbon Dioxide 30 mmol/L (21-32) 06/07/19 07:55 Anion Gap 7 MMOL/L (8-16) L 06/07/19 07:55 BUN 16.9 mg/dL (7-18) 06/07/19 07:55 Creatinine 1.1 mg/dL (0.55-1.3) 06/07/19 07:55 Est GFR (CKD-EPI)AfAm 93.47 06/07/19 07:55 Est GFR (CKD-EPI)NonAf 80.64 06/07/19 07:55 POC Glucometer 113 UNITS (80-120) 06/10/19 05:11 Random Glucose 93 mg/dL (74-106) 06/07/19 07:55 Calcium 8.7 mg/dL (8.5-10.1) 06/07/19 07:55 Total Bilirubin 0.6 mg/dL (0.2-1) 06/07/19 07:55 AST 26 U/L (15-37) 06/07/19 07:55 ALT 41 U/L (13-61) 06/07/19 07:55 Alkaline Phosphatase 96 U/L (45-117) 06/07/19 07:55 Total Protein 7.0 g/dl (6.4-8.2) 06/07/19 07:55 Albumin 3.6 g/dl (3.4-5.0) 06/07/19 07:55 RPR Titer Nonreactive (NONREACTIVE) 06/07/19 07:55 Assessment: 06/10/19 13:45 withdrawal symptom Plan: continue detox librium regimen
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
[2019-06-10] MEDS ORDERED: DIVALPROEX SODIUM 500 MG TABLET E.C. PO SCH (14:00)
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
[2019-06-11] MEDS ORDERED: chlordiazePOXIDE HCL 10 MG CAPSULE PO ONE (05:00)
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
[2019-06-11] MEDS ORDERED: CITALOPRAM HYDROBROMIDE 20 MG TABLET (FP) PO SCH (10:00)
--- NOTE | 2019-06-12 08:49 | PN ---
Teaching Attending Note Name of Resident: Florina Carrera ATTENDING PHYSICIAN STATEMENT I saw and evaluated the patient. I reviewed the resident's note and discussed the case with the resident. I agree with the resident's findings and plan as documented. SUBJECTIVE: I agree with the resident's subjective findings. OBJECTIVE: I agree with the resident's objective findings. ASSESSMENT AND PLAN: I agree with the plan as documented by the resident on 06/06/19. Eloy Mauro
== END 2019-06-10 13:50 | DRG 773 ==
LOC: YASAS 11:22 → Y3N 15:34
PROVIDERS: ADMIT Allergy & Immunology; ATTEND Allergy & Immunology
PROC: HZ2ZZZZ Detoxification Services for Substance Abuse Treatment (ICD-10-PCS; principal; 2019-06-06)
DX: F10.230 Alcohol dependence with withdrawal, uncomplicated (principal); F10.220 Alcohol dependence with intoxication, uncomplicated; F14.20 Cocaine dependence, uncomplicated; F12.20 Cannabis dependence, uncomplicated; F11.10 Opioid abuse, uncomplicated; F17.210 Nicotine dependence, cigarettes, uncomplicated; F25.9 Schizoaffective disorder, unspecified; F19.24 Other psychoactive substance dependence with psychoactive substance-induced mood disorder; F91.8 Other conduct disorders; I10 Essential (primary) hypertension; E11.9 Type 2 diabetes mellitus without complications; K21.9 Gastro-esophageal reflux disease without esophagitis; G47.00 Insomnia, unspecified; D57.3 Sickle-cell trait; Z91.14 Patient's other noncompliance with medication regimen; Z79.84 Long term (current) use of oral hypoglycemic drugs
CPT/HCPCS: 36415; 80053; 82962; 85027; 86593

== ENCOUNTER 2024-03-26 15:47 | Emergency (ER) | payer OTHER ==
[2024-03-26 17:32] VITALS: BP 149/91; PULSE 96; RESP 18; TEMP 99; BMI 32.8
== END 2024-03-26 19:12 | disposition home or self-care (01) ==
LOC: JER 15:47
DX: F14.23 Cocaine dependence with withdrawal (principal)
CPT/HCPCS: 80305; 80307; 99283-25; 99285-25